=== PATIENT | female | born 1995 | race American Indian/Alaskan Native ===

== ENCOUNTER 2018-08-17 23:14 | Emergency (ER) | payer SELFPAY ==
[2018-08-18 02:19] VITALS: BP 142/100
--- NOTE | 2018-08-18 02:34 | Emergency Department Report ---
ED Anxiety HPI - General Chief Complaint: Anxiety Stated Complaint: ANXIETY/SOB Time Seen by Provider: 08/18/18 01:32 Source: patient Mode of arrival: Ambulatory - History of Present Illness Initial Comments: [age]-[place] female reports that she had a panic attack at work. She reports that she felt her heart was racing. She denies any nausea vomiting. She denies any past medical history, no known drug allergies currently takes no medications on a daily basis. MD Complaint: heart racing -: This afternoon Symptoms: palpitations Place: work Previous History of Same: No Severity: mild Quality: intermittant Improves With: nothing Associated symptoms: diaphoresis - Related Data Home Medications: Previous Rx's Medication Instructions Recorded Last Taken Type hydrALAZINE [Apresoline TAB] 25 mg PO Q8HR #15 tab 08/18/18 Unknown Rx Allergies/Adverse Reactions: Allergies Allergy/AdvReac Type Severity Reaction Status Date / Time No Known Allergies Allergy Unverified 08/18/18 00:04 ED Review of Systems ROS: Stated complaint: ANXIETY/SOB Other details as noted in HPI ED Past Medical Hx - Past Medical History Previous Medical History?: No - Surgical History Past Surgical History?: No - Social History Smoking Status: Light Tobacco Smoker Substance Use Type: Alcohol - Medications Home Medications: Home Medications Medication Instructions Recorded Confirmed Last Taken Type hydrALAZINE [Apresoline TAB] 25 mg PO Q8HR #15 tab 08/18/18 Unknown Rx ED Physical Exam - General Limitations: No Limitations ED Course Vital Signs 08/18/18 08/18/18 00:04 02:08 Temperature 98 F Pulse Rate 87 Respiratory 14 Rate Blood Pressure 152/108 Blood Pressure 142/100 [Right] O2 Sat by Pulse 97 Oximetry Critical care attestation.: If time is entered above; I have spent that time in minutes in the direct care of this critically ill patient, excluding procedure time. ED Disposition Clinical Impression: Panic attack Disposition: DC-01 TO HOME OR SELFCARE Is pt being admited?: No Does the pt Need Aspirin: No Condition: Stable Instructions: Anxiety (ED) Additional Instructions: Please take medication only as needed. Follow up with her primary care provider I have listed several below for your convenience Prescriptions: hydrALAZINE [Apresoline TAB] 25 mg PO Q8HR #15 tab Referrals: PRIMARY CARE, [Primary Care Provider] - 3-5 Days [facility] [Outside] - 3-5 Days [facility] [place]Note 3[facility] [Outside] - 3-[address] [facility] [Outside] - 3-5 Days Forms: Work/School Release Form(ED)
== END 2018-08-18 02:35 | disposition home or self-care (01) ==
LOC: ED 23:14
DX: F41.0 Panic disorder [episodic paroxysmal anxiety] (principal); F17.200 Nicotine dependence, unspecified, uncomplicated
CPT/HCPCS: 99282